=== PATIENT | female | born 1985 | race Caucasian/White ===

== ENCOUNTER 2017-09-23 14:36 | Emergency (ER) | payer OTHER ==
[2017-09-23 14:47] VITALS: BMI 32.8
--- NOTE | 2017-09-23 14:51 | PDOC ---
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 No head injury. Pt on brief exam: no CVa tenderness, ambulatory, no abd tenderness Pt ordered for: none. last u/s 1 month ago. Has appt for u/s tomorrow at 8am Pt to proceed to the ED Discharge Disposition - Diagnosis Fall - Referrals - Patient Instructions - Post Discharge Activity
[2017-09-23] MEDS ORDERED: ACETAMINOPHEN 500 MG TABLET (FP) PO ONE (16:20)
[2017-09-23] MEDS ORDERED: ACETAMINOPHEN 500 MG TABLET (FP) ONE (16:23)
--- NOTE | 2017-09-23 16:27 | PDOC ---
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 Has complaints of right lower back pain, eyes bleeding from urine, denies any vaginal drainage. Occurred: reports: this afternoon Severity: reports: moderate Pain Location: reports: back, pelvis Method of Injury: Yes: fall Modifying Factors: improves with: None Loss of Consciousness: no loss of consciousness Associated Symptoms (Fall): headache, trouble walking Past History - Travel Traveled outside of the country in the last 30 days: No Close contact w/someone who was outside of country & ill: No - Past Medical History Allergies/Adverse Reactions: Allergies Allergy/AdvReac Type Severity Reaction Status Date / Time No Known Allergies Allergy Verified 09/23/17 14:43 Home Medications: Ambulatory Orders NK [No Known Home Medication] 09/23/17 COPD: No - Suicide/Smoking/Psychosocial Hx Smoking History: Never smoked Review of Systems - Review of Systems Able to Perform ROS?: Yes Is the patient limited Polish proficient: Yes Constitutional: Yes: See HPI, Malaise. No: Symptoms Reported HEENTM: Yes: See HPI. No: Symptoms Reported Respiratory: No: Symptoms reported, See HPI ABD/GI: No: Symptoms Reported : No: Symptoms Reported Musculoskeletal: Yes: Symptoms Reported, See HPI, Back Pain (low right flank and back) Integumentary: Yes: See HPI. No: Symptoms Reported, Bruising All Other Systems: Reviewed and Negative *Physical Exam - Vital Signs Last Vital Signs Temp Pulse Resp BP Pulse Ox 99 F 89 20 110/79 99 09/23/17 14:45 09/23/17 14:45 09/23/17 14:45 09/23/17 14:45 09/23/17 14:45 - Physical Exam General Appearance: Yes: Nourished, Appropriately Dressed, Apparent Distress, Moderate Distress HEENT: positive: RENITA, Normal ENT Inspection, TMs Normal, Pharynx Normal Neck: positive: Supple, Other (no C-spine tenderness, no spinous process tenderness along any of spine. Pain is reproduced primarily to the right waist paravertebral spinous muscles and lower flank area. No bruising, no deformity, muscle groups mildly spasmodic. Range of motion is limited secondary to pain in this area. Coccyx pain). negative: Tender Respiratory/Chest: positive: Lungs Clear. negative: Chest Tender Gastrointestinal/Abdominal: positive: Soft. negative: Tender Musculoskeletal: positive: Normal Inspection. negative: CVA Tenderness, Decreased Range of Motion (limited due to pain and mild spasm ) Extremity: positive: Normal Inspection. negative: Normal Range of Motion, Swelling Integumentary: positive: Normal Color, Warm. 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 Urinalysis obtained, and discussed case with labor and delivery who will receive patient, watch for changes in urinalysis and monitor for heart tones. Understand may be discharged after their evaluation. Patient provided with Tylenol for pain and some relief. *DC/Admit/Observation/Transfer Diagnosis at time of Disposition: Fall Qualifiers: Encounter type: initial encounter Qualified Code(s): W19.XXXA - Unspecified fall, initial encounter Contusion Qualifiers: Encounter type: initial encounter Contusion area: lower back Qualified Code(s) : S30.0XXA - Contusion of lower back and pelvis, initial encounter - Discharge Dispostion Disposition: HOME Condition at time of disposition: Stable Admit: No - Referrals - Patient Instructions Printed Discharge Instructions: DI for Contusion Additional Instructions: Rest, ice to area on and off for 15 minutes 4-6 times a day Avoid heavy lifting or exercise until pain and swelling is resolved or until further directed Keep area highly elevated to reduce swelling Followup with orthopedist in one to 2 days if not improving, if significantly improved may wait one week for followup with orthopedist May use Tylenol 2 - 325mg tabs tablets every 4-6-hours as needed for pain - Post Discharge Activity Forms/Work/School Notes: Back to Work
[2017-09-23 16:42] LABS: URINE APPEARANCE CLOUDY; URINE BILIRUBIN NEGATIVE (NEGATIVE); URINE BLOOD NEGATIVE (NEGATIVE); URINE COLOR YELLOW; URINE GLUCOSE (UA) 1+ (NEGATIVE); URINE KETONE NEGATIVE (NEGATIVE); URINE NITRITE NEGATIVE (NEGATIVE); URINE PROTEIN NEGATIVE (NEGATIVE)
[2017-09-23 16:50] LABS: URINE LEUK ESTERASE 3+ (NEGATIVE)
[2017-09-23 17:17] LABS: EPI CELLS MANY /HPF (FEW); URINE BACTERIA RARE /hpf (NONE SEEN); URINE MUCUS MODERATE
[2017-09-23 18:05] VITALS: BP 102/68; PULSE 77; TEMP 98.2
== END 2017-09-23 18:28 | disposition home or self-care (01) ==
LOC: JER 14:36 → JERFT 14:36 → JER 18:28
DX: O26.892 Other specified pregnancy related conditions, second trimester (principal); S30.0XXA Contusion of lower back and pelvis, initial encounter; W00.1XXA Fall from stairs and steps due to ice and snow, initial encounter; Y93.89 Activity, other specified; Y92.89 Other specified places as the place of occurrence of the external cause; Y99.8 Other external cause status; Z3A.20 20 weeks gestation of pregnancy
CPT/HCPCS: 81003; 81015; 99281-25

== ENCOUNTER 2018-01-05 09:52 | Emergency (ER) | payer OTHER ==
[2018-01-05 10:12] VITALS: BP 100/60; PULSE 100; TEMP 98.5; BMI 29.8
--- NOTE | 2018-01-05 10:32 | PDOC ---
*Physical Exam - Vital Signs Last Vital Signs Temp Pulse Resp BP Pulse Ox 98.5 F 100 H 20 100/60 98 01/05/18 10:08 01/05/18 10:08 01/05/18 10:08 01/05/18 10:08 01/05/18 10:08 ED Treatment Course - LABORATORY CBC & Chemistry Diagram: 01/05/18 12:25 01/05/18 12:25 Medical Decision Making - Medical Decision Making 01/05/18 10:31 Pt seen by Midlevel Provider under my direct supervision Ancillary studies reviewed I agree with plan as outlined by Midlevel Provider *DC/Admit/Observation/Transfer Diagnosis at time of Disposition: Hyperemesis - Discharge Dispostion Disposition: HOME Condition at time of disposition: Improved - Prescriptions Prescriptions: Metoclopramide HCl [Reglan] 10 mg PO Q8H #12 tablet - Referrals - Patient Instructions Printed Discharge Instructions: DI for Hyperemesis Gravidarum Additional Instructions: Tus laboratorios fueron normales. Los sntomas que experimenta, anais nuseas y vmitos, son normales garcia el embarazo. [place] Reglan segn lo dirigido. La medicacin fue enviada aqu a la farmacia. Beber mucho lquido. Por favor haz un seguimiento con tu OB maana Print Language: SWEDISH - Post Discharge Activity
[2018-01-05] MEDS ORDERED: RANITIDINE HCL 150 MG TABLET (FP) PO ONE (11:08)
[2018-01-05] MEDS ORDERED: SODIUM CHLORIDE 1,000 ML IV STA (11:08)
[2018-01-05] MEDS ORDERED: METOCLOPRAMIDE HCL INJECTION 10 MG/2 ML VIAL IVPB ONE (11:08)
--- NOTE | 2018-01-05 12:03 | PDOC ---
History of Present Illness - General Chief Complaint: Nausea/Vomiting Stated Complaint: VOMITING (35 WKS ) Time Seen by Provider: 01/05/18 10:28 History Source: Patient - History of Present Illness Timing/Duration: reports: other (last night) Abdominal Pain Onset Location: reports: epigastric Past History - Past Medical History Allergies/Adverse Reactions: Allergies Allergy/AdvReac Type Severity Reaction Status Date / Time No Known Allergies Allergy Verified 01/05/18 10:11 Home Medications: Ambulatory Orders Metoclopramide HCl [Reglan] 10 mg PO Q8H #12 tablet 01/05/18 COPD: No - Suicide/Smoking/Psychosocial Hx Smoking History: Never smoked Hx Alcohol Use: No Drug/Substance Use Hx: No Review of Systems - Review of Systems Constitutional: No: Chills, Fever Respiratory: No: Shortness of Breath Cardiac (ROS): No: Chest Pain ABD/GI: Yes: Nausea, Vomiting. No: Abdominal cramping : No: Dysuria, Flank Pain *Physical Exam - Vital Signs Last Vital Signs Temp Pulse Resp BP Pulse Ox 98.5 F 100 H 20 100/60 98 01/05/18 10:08 01/05/18 10:08 01/05/18 10:08 01/05/18 10:08 01/05/18 10:08 - Physical Exam General Appearance: Yes: Appropriately Dressed. No: Apparent Distress HEENT: positive: Normal Voice Neck: positive: Supple Respiratory/Chest: negative: Respiratory Distress Gastrointestinal/Abdominal: positive: Soft. negative: Tender Musculoskeletal: negative: CVA Tenderness Integumentary: positive: Dry, Warm Neurologic: positive: Fully Oriented, Alert, Normal Mood/Affect ED Treatment Course - LABORATORY CBC & Chemistry Diagram: 01/05/18 12:25 01/05/18 12:25 Medical Decision Making - Medical Decision Making 01/05/18 11:58 32-year-old female, , currently ~35 weeks , on meds for "gastritis" , here with nausea, vomiting since last night, unable to tolerate po. Does have vague epigastric discomfort similar to her gastritis. No acute abd pain otherwise and no vag bleed, dysuria, fever or chills and has OB appointment tomorrow See exam Hyperemesis vs gastritis in 3rd trimester preg No lower abd pain or dysuria HR 100 and well geraldine in ED w/ unremarkable exam -zantac -relglan -IVF -labs/ua -reassess 01/05/18 13:27 Labs unremarkable. Patient improved and able to rocky po. Will dc with reglan. Patient to follow up with OB as already scheduled tomorrow *DC/Admit/Observation/Transfer Diagnosis at time of Disposition: Hyperemesis - Discharge Dispostion Disposition: HOME Condition at time of disposition: Improved - Prescriptions Prescriptions: Metoclopramide HCl [Reglan] 10 mg PO Q8H #12 tablet - Referrals - Patient Instructions Printed Discharge Instructions: DI for Hyperemesis Gravidarum Additional Instructions: Tus laboratorios fueron normales. Los sntomas que experimenta, anais nuseas y vmitos, son normales garcia el embarazo. [place] Reglan segn lo dirigido. La medicacin fue enviada aqu a la farmacia. Beber mucho lquido. Por favor haz un seguimiento con tu OB maana Print Language: IRISH - Post Discharge Activity
[2018-01-05] MEDS ORDERED: RANITIDINE HCL 150 MG TABLET (FP) ONE (12:11)
[2018-01-05] MEDS ORDERED: METOCLOPRAMIDE HCL INJECTION 10 MG/2 ML VIAL ONE (12:11)
[2018-01-05 12:46] LABS: BASO % 0.6 % (0-2.0); EOS % 0.7 % (0-4.5); HEMATOCRIT 33.5 % (32.4-45.2); HEMOGLOBIN 11.3 GM/dL (10.7-15.3); LYMPH % 25.4 % (8-40); MCH 25.5 pg (25.7-33.7); MCHC 33.6 g/dl (32.0-36.0); MEAN PLT VOLUME 8.3 fl (7.5-11.1); MONO % 10.5 % (3.8-10.2); NEUT % 62.8 % (42.8-82.8); PLATELET COUNT 272 K/MM3 (134-434); RBC 4.42 M/mm3 (3.60-5.2); WHITE BLOOD COUNT 7.5 K/mm3 (4.0-10.0)
[2018-01-05 12:58] LABS: CHLORIDE 105 mmol/L (98-107); POTASSIUM 4.3 mmol/L (3.5-5.1); SODIUM 139 mmol/L (136-145)
[2018-01-05 13:07] LABS: ALBUMIN 3.1 g/dl (3.4-5.0); ALK PHOS 114 U/L (45-117); ANION GAP 8 (8-16); BILIRUBIN,TOTAL 0.4 mg/dL (0.2-1.0); BLOOD UREA NITROGEN 6 mg/dL (7-18); CALCIUM 8.8 mg/dL (8.5-10.1); CO2 26 mmol/L (21-32); CREATININE 0.5 mg/dL (0.55-1.02); GLUCOSE,RANDOM 74 mg/dL (74-106); SGOT/AST 21 U/L (15-37); SGPT/ALT 18 U/L (12-78); TOT PROT 7.3 g/dl (6.4-8.2)
[2018-01-05 14:14] LABS: URINE APPEARANCE SLCLOUDY; URINE BILIRUBIN NEGATIVE (<2.0 mg/dL); URINE COLOR YELLOW; URINE GLUCOSE (UA) NEGATIVE (NEGATIVE); URINE KETONE NEGATIVE (NEGATIVE); URINE NITRITE NEGATIVE (NEGATIVE); URINE PROTEIN NEGATIVE (NEGATIVE)
[2018-01-05 14:52] LABS: URINE LEUK ESTERASE 2+ (NEGATIVE)
[2018-01-05 14:54] LABS: EPI CELLS MANY /HPF (FEW); URINE HYALINE CAST 4 /lpf; URINE MUCUS RARE
== END 2018-01-05 16:00 | disposition home or self-care (01) ==
LOC: JER 09:52
PROC: 3E033GC Introduction of Other Therapeutic Substance into Peripheral Vein, Percutaneous Approach (ICD-10-PCS; principal; 2018-01-05)
PROC: 3E0337Z Introduction of Electrolytic and Water Balance Substance into Peripheral Vein, Percutaneous Approach (ICD-10-PCS; 2018-01-05)
DX: O26.893 Other specified pregnancy related conditions, third trimester (principal); O21.0 Mild hyperemesis gravidarum; Z3A.35 35 weeks gestation of pregnancy
CPT/HCPCS: 36415; 80053; 81003; 81015; 85025; 96361; 96374; 99283-25; J7030

== ENCOUNTER 2018-02-03 14:15 | Inpatient (IN) | payer OTHER ==
[2018-02-03 15:48] VITALS: BMI 34.7
--- NOTE | 2018-02-03 15:51 | HP ---
Past Medical History - Primary Care Physician PCP:: Lawson Peña - Admission Chief Complaint: 39 weeks, previous c/s , for repeat c/s History of Present Illness: 32 yo f , 39 weeks with one previous c/s ,requesting repeat c/s, risks discussed , encouraged, , cx clp, vx -3 mi, fhr cat1 History Source: Patient Limitations to Obtaining History: Language Barrier - Past Medical History Renal/: Yes: UTI ...: 8 ...Para: 4 ...Term: 4 ...Spon : 2 ...Induced : 1 ... Weeks Gestation by Dates: 39 ...EDC by Dates: 02/09/18 ...EDC by Sono: 02/09/18 Additional OB History: 3 , one c/c Heme/Onc: Yes: Anemia - Past Surgical History Past Surgical History: Yes: Bariatric Surgery, Hx Myomectomy: No Hx Transabdominal Cerclage: No - Smoking History Smoking history: Never smoked - Alcohol/Substance Use Hx Alcohol Use: No - Social History Usual Living Arrangement: Yes: With Spouse History of Recent Travel: No Home Medications - Allergies Allergies/Adverse Reactions: Allergies Allergy/AdvReac Type Severity Reaction Status Date / Time No Known Allergies Allergy Verified 01/17/18 20:52 - Home Medications Home Medications: Ambulatory Orders Vit Calc,Iron,Folic [ Vitamins] 1 tab PO DAILY 01/17/18 Review of Systems - Review of Systems Constitutional: reports: No Symptoms Eyes: reports: No Symptoms HENT: reports: No Symptoms Neck: reports: No Symptoms Cardiovascular: reports: No Symptoms Respiratory: reports: No Symptoms Gastrointestinal: reports: No Symptoms Genitourinary: reports: No Symptoms Breasts: reports: No Symptoms Reported Musculoskeletal: reports: No Symptoms Integumentary: reports: No Symptoms Neurological: reports: No Symptoms Endocrine: reports: No Symptoms Hematology/Lymphatic: reports: No Symptoms Psychiatric: reports: No Symptoms Physical Exam - Maternity Constitutional: Yes: Well Nourished, No Distress, Calm Eyes: Yes: WNL, Conjunctiva Clear, EOM Intact HENT: Yes: WNL, Atraumatic, Normocephalic Neck: Yes: WNL, Supple, Trachea Midline Cardiovascular: Yes: WNL, Regular Rate and Rhythm Breast(s): Yes: WNL - Abdominal Exam/OB Fundal Height: 40 Number of Fetuses: Single Presentation: Vertex Contractions: No Regularity: Irritability Intensity: Unaware Monitor Mode: External Heart Rate Location: [facility] Category: I Accelerations: Uniform Decelerations: None - Vaginal Exam/OB Vaginal Bleediing: No Speculum Exam: No Dilatation (cm): closed Effacement (%): 0 Amniotic Membrane Status: Intact Presentation: Vertex/Position Station: -3 - Physical Exam Musculoskeletal: Yes: WNL Extremities: Yes: WNL Edema: Yes Edema: LLE: Trace, RLE: Trace Deep Tendon Reflex Grade: Normal +2 ...Motor Strength: WNL Psychiatric: Yes: WNL Hemorrhage Risk Assessment - Risk Factors Medium Risk Factors: Yes: Prior , uterine surgery,or multiple laparotomies Risk Score: 1 Risk Level: Medium Risk Problem List - Problems (1) with 39 completed weeks gestation Code(s): Z3A.39 - 39 WEEKS GESTATION OF (2) Previous section complicating Code(s): O34.219 - MATERNAL CARE FOR UNSP TYPE SCAR FROM PREVIOUS DEL Assessment/Plan repeat c/s, RBA discussed
[2018-02-03] MEDS ORDERED: ELECTROLYTE-148 SOLN 1,000 ML IV SCH (16:15)
[2018-02-03] MEDS ORDERED: CITRIC ACID/SODIUM CITRATE 30 ML UNIT-DOSE CUP PO ONE (16:30)
[2018-02-03] MEDS ORDERED: ceFAZolin SODIUM 1 GM VIAL ONE (17:50)
[2018-02-03] MEDS ORDERED: morphine SULFATE/Preservative Free 0.5 MG/ML (1cc Syringe) ONE (17:51)
[2018-02-03] MEDS ORDERED: BUPIVACAINE 0.75% IN DEXTROSE/PF 2ML AMPULE NR ONE (17:52)
[2018-02-03] MEDS ORDERED: PHENYLEPHRINE HCL 10 MG/1 ML SINGLE DOSE VIAL ONE (18:03)
[2018-02-03] MEDS ORDERED: OXYTOCIN 10 UNITS/ML VIAL ONE ×2 (18:16→18:27)
[2018-02-03] MEDS ORDERED: ONDANSETRON 4 MG/2 ML VIAL IVPUSH PRN (18:41)
[2018-02-03] MEDS ORDERED: IBUPROFEN 800 MG/8 ML IJ IVPB PRN (18:41)
[2018-02-03] MEDS ORDERED: BENZOCAINE 20% 57 GM BOTTLE TP PRN (18:45)
[2018-02-03] MEDS ORDERED: OXYTOCIN 20 UNITS in 0.9% NS 20 UNIT/1,000 ML INFUS.BAG IV SCH (18:45)
[2018-02-03] MEDS ORDERED: DEXTROSE 5%-LACTATED RINGERS 1,000 ML IV SCH (18:45)
[2018-02-03] MEDS ORDERED: METHYLERGONOVINE MALEATE 0.2 MG/1 ML AMP IM PRN (18:45)
[2018-02-03] MEDS ORDERED: oxyCODONE HCL 5 MG TABLET PO PRN (18:45)
[2018-02-03] MEDS ORDERED: WITCH HAZEL 50% (TUCKS) 40 PAD/JAR PAD TP PRN (18:45)
[2018-02-03] MEDS ORDERED: BENZOCAINE 28 GM HEMORRHOIDAL OINTMENT PR PRN (18:45)
[2018-02-03] MEDS ORDERED: diphenhydrAMINE HCL 25 MG CAPSULE (FP) PO PRN (18:45)
[2018-02-03] MEDS ORDERED: IBUPROFEN 800 MG/8 ML IJ IVPB ONE (20:29)
--- NOTE | 2018-02-04 00:40 | OP ---
DATE OF OPERATION: 02/03/2018 PREOPERATIVE DIAGNOSIS: 39 weeks, previous section, request of repeat section. POSTOPERATIVE DIAGNOSIS: 39 weeks, previous section, request of repeat section. PROCEDURE: Repeat low segment transverse section. SURGEON: Pura Peña M.D. SENIOR NET WEB DEVELOPER: Chika Stanley ANESTHESIA: Spinal. ANESTHESIOLOGIST: William Rosales M.D. ESTIMATED BLOOD LOSS: 500 mL. OPERATION: Patient was taken to operating room with adequate spinal anesthesia. Abdomen and perineum were prepped and draped. Pfannenstiel abdominal skin incision was made over the previous incision. Abdominal wall was cut layer by layer until the peritoneum was exposed and incised. Upon entering the abdominal cavity, the lower uterine segment was identified, and uterovesical fold of the peritoneum was established. The bladder was pushed down. Then with the lower blade of the [place] retractor in the pelvis, a low transverse uterine incision was made. The incision extended laterally. Amniotic sac was entered. Clear fluid. Head delivered. Nasopharynx was suctioned. Cord around the neck x1 reduced. A live baby was delivered without any difficulty. Placenta was delivered manually. Uterine cavity was cleared of all remaining tissue. Uterine incision was closed in 2 layers, the 1st layer with 0 Biosyn continuous suture, the 2nd layer with 0 Biosyn imbricating the 1st layer. Bladder flap was closed with 0 Biosyn continuous suture. Both tubes and ovaries were checked and were normal. No active bleeding was seen. All the lap, sponge, and instrument counts were correct. Peritoneum was closed with 0 Biosyn continuous suture. Muscles were brought together interrupted suture with 0 Biosyn. Fascia was closed with 0 Biosyn continuous sutures. Subcutaneous fat interrupted sutures 0 Biosyn, and the skin was closed with kimberly. The patient tolerated the procedure well and left the OR in good condition. PURA PEÑA M.D. /[id number]
[2018-02-04] MEDS ORDERED: DEXTROSE 5%-WATER - 50 ML IVPB ONE ×2 (01:16→09:21)
[2018-02-04] MEDS ORDERED: ceFAZolin SODIUM 1 GM VIAL ONE ×2 (01:16→09:21)
[2018-02-04] MEDS: CEFAZOLIN 1 GM in DEXTROSE 5%-WATER - 50 ML IVPB SCH ×2 (01:40→09:26)
--- NOTE | 2018-02-04 07:05 | PN ---
Progress Note (short form) - Note Progress Note: pod 1 s/p repeat c/s , doing well, no c/o Last Vital Signs Temp Pulse Resp BP Pulse Ox 98.0 F 68 20 90/60 99 02/04/18 06:00 02/04/18 06:00 02/04/18 06:00 02/04/18 06:00 02/03/18 19:04 abdomen soft, non tender ,no distension, incision dry, clean no calf tenderness lochia mild pod 1 afebrile plan ambulate, cbc, advance diet, pain mangement Problem List - Problems (1) with 39 completed weeks gestation Code(s): Z3A.39 - 39 WEEKS GESTATION OF (2) Previous section complicating Code(s): O34.219 - MATERNAL CARE FOR UNSP TYPE SCAR FROM PREVIOUS DEL
[2018-02-04 08:38] LABS: BASO % 0.5 % (0-2.0); EOS % 0.2 % (0-4.5); HEMOGLOBIN 11.3 GM/dL (10.7-15.3); LYMPH % 18.5 % (8-40); MCH 24.9 pg (25.7-33.7); MCHC 33.2 g/dl (32.0-36.0); MEAN PLT VOLUME 7.9 fl (7.5-11.1); MONO % 9.5 % (3.8-10.2); NEUT % 71.3 % (42.8-82.8); PLATELET COUNT 305 K/MM3 (134-434); RBC 4.54 M/mm3 (3.60-5.2); RDW 16.7 % (11.6-15.6); WHITE BLOOD COUNT 7.4 K/mm3 (4.0-10.0)
[2018-02-04] MEDS: ENOXAPARIN NA (PORCINE) 40 MG/0.4 ML DISP.SYRIN SQ SCH (09:49)
[2018-02-04] MEDS ORDERED: DIPHTH,PERTUSS(ACELL),TET 0.5 ML DISP.SYRIN IM ONE (10:00)
[2018-02-04] MEDS: SIMETHICONE 80 MG TAB.CHEW (FP) PO PRN ×4 (11:55→21:20)
[2018-02-04] MEDS: oxyCODONE HCL 5 MG TABLET PO PRN ×2 (11:56→21:20)
[2018-02-04] MEDS: IBUPROFEN 600 MG TABLET (FP) PO PRN ×2 (11:58→21:20)
[2018-02-04] MEDS ORDERED: IBUPROFEN 800 MG/8 ML IJ IVPB PRN (17:45)
[2018-02-04] MEDS ORDERED: BISACODYL 10 MG SUPP.RECT RC PRN (18:46)
--- NOTE | 2018-02-05 07:19 | PN ---
Post Progress Note - Subjective Subjective: pain scale 4/10 bm done voiding without difficulty Post Day: 2 Type of Delivery: Repeat C/S Vital Signs: Vital Signs Temperature 99.0 F 02/04/18 22:00 Pulse Rate 90 02/04/18 22:00 Respiratory Rate 20 02/04/18 22:00 Blood Pressure 122/65 02/04/18 22:00 O2 Sat by Pulse Oximetry (%) 99 02/03/18 19:04 Breast Exam: Yes: Soft, Other (BF). No: Engorged Uterus: Yes: Fundus Firm, Fundus below umbilicus, Non-tender Incision: Yes: Dressing dry and intact (to be changed ). No: Redness, Oozing Abdomen/GI: Yes: Abdomen soft (bs active ), Passing flatus, Tolerating PO (diet ). No: Abdominal Distention, Tender Lochia: Yes: Rubra Lochia, amount: Moderate Extremities: Yes: Calves non-tender Perineum: Yes: Intact Activity: Ambulating - Labs Labs: CBC WBC 7.4 K/mm3 (4.0-10.0) D 02/04/18 08:00 RBC 4.54 M/mm3 (3.60-5.2) 02/04/18 08:00 Hgb 11.3 GM/dL (10.7-15.3) 02/04/18 08:00 Hct 34.0 % (32.4-45.2) 02/04/18 08:00 MCV 75.0 fl (80-96) L 02/04/18 08:00 MCH 24.9 pg (25.7-33.7) L 02/04/18 08:00 MCHC 33.2 g/dl (32.0-36.0) 02/04/18 08:00 RDW 16.7 % (11.6-15.6) H 02/04/18 08:00 Plt Count 305 K/MM3 (134-434) 02/04/18 08:00 MPV 7.9 fl (7.5-11.1) 02/04/18 08:00 Absolute Neuts (auto) 5.2 # 02/04/18 08:00 Neutrophils % 71.3 % (42.8-82.8) D 02/04/18 08:00 Lymphocytes % 18.5 % (8-40) D 02/04/18 08:00 Monocytes % 9.5 % (3.8-10.2) 02/04/18 08:00 Eosinophils % 0.2 % (0-4.5) 02/04/18 08:00 Basophils % 0.5 % (0-2.0) 02/04/18 08:00 Nucleated RBC % 0 % (0-0) 02/04/18 08:00 Assessment/Plan stable ct po care
[2018-02-05] MEDS: SIMETHICONE 80 MG TAB.CHEW (FP) PO PRN ×3 (07:41→22:23)
[2018-02-05] MEDS: oxyCODONE HCL 5 MG TABLET PO PRN ×2 (07:41→15:12)
[2018-02-05] MEDS: IBUPROFEN 600 MG TABLET (FP) PO PRN ×3 (07:42→22:21)
[2018-02-05] MEDS: ENOXAPARIN NA (PORCINE) 40 MG/0.4 ML DISP.SYRIN SQ SCH (09:10)
[2018-02-05] MEDS ORDERED: SENNOSIDES/DOCUSATE COMBO (SENNA PLUS) TABLET (UD) PO PRN (22:00)
[2018-02-06 08:15] LABS: BASO % 0.7 % (0-2.0); EOS % 1.3 % (0-4.5); HEMATOCRIT 29.8 % (32.4-45.2); HEMOGLOBIN 10.1 GM/dL (10.7-15.3); LYMPH % 34.4 % (8-40); MCH 25.3 pg (25.7-33.7); MCHC 33.7 g/dl (32.0-36.0); MEAN PLT VOLUME 7.8 fl (7.5-11.1); MONO % 9.9 % (3.8-10.2); NEUT % 53.7 % (42.8-82.8); PLATELET COUNT 305 K/MM3 (134-434); RBC 3.97 M/mm3 (3.60-5.2); RDW 16.8 % (11.6-15.6); WHITE BLOOD COUNT 6.1 K/mm3 (4.0-10.0)
--- NOTE | 2018-02-06 08:58 | PN ---
Post Progress Note - Subjective Subjective: no c/o pain voiding without difficulty Post Day: 3 Type of Delivery: Repeat C/S Vital Signs: Vital Signs Temperature 98.8 F 02/05/18 22:00 Pulse Rate 86 02/05/18 22:00 Respiratory Rate 18 02/05/18 22:00 Blood Pressure 110/67 02/05/18 22:00 O2 Sat by Pulse Oximetry (%) 99 02/03/18 19:04 Breast Exam: Yes: Soft. No: Engorged Uterus: Yes: Fundus Firm, Fundus below umbilicus, Non-tender Incision: Yes: Ralph intact. No: Redness Abdomen/GI: Yes: Abdomen soft, Passing flatus (bm done ), Tolerating PO (diet ) . No: Abdominal Distention, Tender Lochia: Yes: Rubra Lochia, amount: Small Extremities: Yes: Calves non-tender Activity: Ambulating - Labs Labs: CBC WBC 6.1 K/mm3 (4.0-10.0) 02/06/18 07:40 RBC 3.97 M/mm3 (3.60-5.2) 02/06/18 07:40 Hgb 10.1 GM/dL (10.7-15.3) L 02/06/18 07:40 Hct 29.8 % (32.4-45.2) L 02/06/18 07:40 MCV 75.0 fl (80-96) L 02/06/18 07:40 MCH 25.3 pg (25.7-33.7) L 02/06/18 07:40 MCHC 33.7 g/dl (32.0-36.0) 02/06/18 07:40 RDW 16.8 % (11.6-15.6) H 02/06/18 07:40 Plt Count 305 K/MM3 (134-434) 02/06/18 07:40 MPV 7.8 fl (7.5-11.1) 02/06/18 07:40 Absolute Neuts (auto) 3.3 # 02/06/18 07:40 Neutrophils % 53.7 % (42.8-82.8) D 02/06/18 07:40 Lymphocytes % 34.4 % (8-40) D 02/06/18 07:40 Monocytes % 9.9 % (3.8-10.2) 02/06/18 07:40 Eosinophils % 1.3 % (0-4.5) D 02/06/18 07:40 Basophils % 0.7 % (0-2.0) 02/06/18 07:40 Nucleated RBC % 0 % (0-0) 02/06/18 07:40 Assessment/Plan stable discharge today
[2018-02-06 09:08] VITALS: BP 110/73; PULSE 92; TEMP 98.7
[2018-02-06] MEDS: ENOXAPARIN NA (PORCINE) 40 MG/0.4 ML DISP.SYRIN SQ SCH (09:28)
--- NOTE | 2018-02-07 08:31 | DS ---
Physical Exam-BURNER HAND Vital Signs: Vital Signs Temperature 98.7 F 02/06/18 09:05 Pulse Rate 92 H 02/06/18 09:05 Respiratory Rate 20 02/06/18 09:05 Blood Pressure 110/73 02/06/18 09:05 O2 Sat by Pulse Oximetry (%) 99 02/03/18 19:04 Constitutional: Yes: Well Nourished, No Distress, Calm Eyes: Yes: WNL, Conjunctiva Clear, EOM Intact HENT: Yes: WNL, Atraumatic, Normocephalic Neck: Yes: WNL, Supple, Trachea Midline Cardiovascular: Yes: WNL, Regular Rate and Rhythm Respiratory: Yes: WNL, Regular, CTA Bilaterally Gastrointestinal: Yes: WNL ...Rectal Exam: Yes: WNL Renal/: Yes: WNL ....Post : Yes: Uterus firm, Uterus non-tender, Slight lochia rubra Breast(s): Yes: WNL Musculoskeletal: Yes: WNL Extremities: Yes: WNL Integumentary: Yes: WNL, Laceration Wound/Incision: Yes: Clean/Dry, Well Approximated, [place] Intact Neurological: Yes: WNL, Alert, Oriented ...Motor Strength: WNL Psychiatric: Yes: WNL, Alert, Oriented Labs: CBC, BMP 02/06/18 07:40 Delivery - Delivery Section: Repeat, Low Flap Transverse (no complication) Type of Anesthesia: Epidural Episiotomy/Laceration: None EBL (cc): 500 Delivery, Single - Stages of Labor Date of Delivery: 02/03/18 Time of Delivery: 18:15 Time Placenta Delivered: 18:16 - 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 Drink at least eight (8) glasses of water daily in addition to other fluids. ct Regular diet MEDICATIONS: Continue vitamins and iron as previously directed. Motrin and Tylenol may be taken for minor discomfort. ACTIVITY: Mild to moderate exercise may be started in two (2) weeks. Take frequent rest periods. Resume normal activity after six (6) week check up. WOUND CARE OF OPERATIVE SITE: Continue use of perineal bottle until vaginal discharge stops. Keep area clean. Shower daily. Keep abdominal wound dry. Report any drainage or redness to physician. Tub baths, tampons and douches are not permitted for [address] Breast feeding & or Bottle feeding BREAST CARE: (For those that are not breast feeding): If engorgement occurs: Wear tight fitting bra. Take Tylenol or Motrin for pain. Apply cold packs (ice in bags to each breast ) FAMILY PLANNING: There are many control alternatives to pursue and they should be discussed at your first office visit. You may resume sexual activity after your six (6) week check up. (Remember, breast feeding is not a contraceptive) NEXT PHYSICIAN APPOINTMENT: Be certain to call for a one (1) week appointment, unless otherwise directed. RTC for removal of kimberly Call Clinic or got to Emergency Dept if you have any of the following: Heavy vaginal bleeding Painful urination Leg pain Unusual odor noted to vaginal bleeding High fever Red streaking noted on breast Referrals: Lawson Peña MD [Staff Physician] - Disposition: HOME - Home Medications Comprehensive Discharge Medication List: Ambulatory Orders Vit Calc,Iron,Folic [ Vitamins] 1 tab PO DAILY 01/17/18 Ibuprofen [Motrin -] 600 mg PO Q4H PRN #30 tablet 02/06/18
== END 2018-02-06 10:30 | disposition home or self-care (01) | DRG 540 ==
LOC: JLDR 14:15 → J3W 20:50
PROVIDERS: ADMIT Obstetrics & Gynecology; ATTEND Obstetrics & Gynecology
PROC: 10D00Z1 Extraction of Products of Conception, Low, Open Approach (ICD-10-PCS; principal; 2018-02-03)
DX: O34.211 Maternal care for low transverse scar from previous cesarean delivery (principal); O69.81X0 Labor and delivery complicated by cord around neck, without compression, not applicable or unspecified; Z3A.39 39 weeks gestation of pregnancy; Z37.0 Single live birth
CPT/HCPCS: 36415; 85025; 90715